=== PATIENT | male | born 1995 | race Caucasian/White ===

== ENCOUNTER 2018-07-29 18:41 | Emergency (ER) | payer SELFPAY ==
[~2018-07-29] VITALS: Ht 180.3 cm; Wt 65.8 kg
--- NOTE | 2018-07-29 19:04 | NUR ---
ED Nurse Note: Pt walked in to ED with crutches due to left foot injury on Wed night. per pt, fell from skateboard. Pain 6/10 aura. Swelling noted. Aox4, VSS. Will cont to monitor.
--- NOTE | 2018-07-29 19:08 | NUR ---
ED Nurse Note: Pt down to X-ray for imaging.
[2018-07-29] MEDS ORDERED: Norco 5mg/325mg tab ORAL ONE (19:15)
--- NOTE | 2018-07-29 19:42 | Emergency Room Report ---
History of Present Illness General Chief Complaint: Lower Extremity Injury Source: Medical Record Present Illness HPI 22-year-old male presents to the emergency department complaining of 4 out of 10 in severity localized pain, tenderness and swelling to the left ankle 4 days. Patient states that he rolled his ankle and heard a loud pop and has been icing and elevated ever since. Patient reports pain with bearing weight since he is using crutches that he had at home. Denies previous injury to the extremity.Denies numbness tingling or loss of sensation or gross motor movements of the extremities, incontinence of bowel or bladder. Denies CP, Palpitations, LOC, AMS, dizziness, Changes in Vision, weakness or a sudden severe headache. Allergies: Coded Allergies: No Known Allergies (Unverified , 07/29/18) Patient History Past Medical History: see triage record Past Surgical History: none Pertinent Family History: none Immunizations: UTD Reviewed Nursing Documentation: PMH: Agreed; PSxH: Agreed Nursing Documentation-PMH Past Medical History: No History, Except For Hx Asthma: Yes Review of Systems All Other Systems: negative except mentioned in HPI Physical Exam Vital Signs Date Time Temp Pulse Resp B/P (MAP) Pulse Ox O2 Delivery O2 Flow Rate FiO2 07/29/18 18:52 98.4 84 18 125/56 99 Room Air Sp02 EP Interpretation: reviewed, normal General Appearance: no apparent distress, alert, GCS 15, non-toxic Head: normocephalic, atraumatic Eyes: bilateral eye normal inspection, bilateral eye PERRL ENT: hearing grossly normal, normal voice Neck: full range of motion Respiratory: lungs clear, normal breath sounds, speaking full sentences Cardiovascular #1: regular rate, rhythm Musculoskeletal: back normal, normal range of motion, swelling - Lateral left ankle, tender - Lateral left ankle Neurologic: alert, oriented x3, responsive, motor strength/tone normal, sensory intact, speech normal, grossly normal Psychiatric: judgement/insight normal Skin: normal color, no rash, warm/dry, well hydrated Lymphatic: no adenopathy Medical Decision Making PA Attestation Dr. jarrett is my supervising Physician whom patient management has been discussed with. Diagnostic Impression: Primary Impression: Fibula fracture Qualified Codes: S82.822A - Torus fracture of lower end of left fibula, initial encounter for closed fracture ER Course 22-year-old male presents to the emergency department complaining of 4 out of 10 in severity localized pain, tenderness and swelling to the left ankle 4 days. Patient states that he rolled his ankle and heard a loud pop and has been icing and elevated ever since. Patient reports pain with bearing weight since he is using crutches that he had at home. Denies previous injury to the extremity.Denies numbness tingling or loss of sensation or gross motor movements of the extremities, incontinence of bowel or bladder. Denies CP, Palpitations, LOC, AMS, dizziness, Changes in Vision, weakness or a sudden severe headache. Ddx considered but are not limited to Fracture, dislocation, contusion, Sprain/ Strain/Spasm Vital signs: are WNL, pt. is afebrile H&PE are most consistent with musculoskeletal injury will perform imaging to r/ o fractures/dislocations. ORDERS: - X-ray Left ankle ED INTERVENTIONS: - Duncan PO - Left short leg posterior Splint applied by skin care technician. Pt. remains neurovascularly intact. Patient was not provided with crutches as he already had his own pair. DISCHARGE: At this time pt. is stable for d/c to home. Will provide printed patient care instructions, and any necessary prescriptions. Care plan and follow up instructions have been discussed with the patient prior to discharge. Other X-Ray Diagnostic Results Other X-Ray Diagnostic Results : X-Ray ordered: Left ankle # of Views/Limited Vs Complete: 3 View Indication: Pain EP Interpretation: Yes THAI Xray: Interpretation reviewed, by supervising MD, and agrees with findings. Interpretation: no dislocation, no soft tissue swelling, other - Torsional distal fibula fracture. Impression: Other - Abnormal Electronically Signed by: Haven Pineda PA-C Last Vital Signs Date Time Temp Pulse Resp B/P (MAP) Pulse Ox O2 Delivery O2 Flow Rate FiO2 07/29/18 18:52 98.4 84 18 125/56 99 Room Air Disposition: HOME, SELF-CARE Condition: Stable Scripts Ibuprofen* (MOTRIN*) 600 Mg Tablet 600 MG ORAL THREE TIMES A DAY, #30 TAB 0 Refills Prov: Haven Pineda 07/29/18 Hydrocodone Bit/Acetaminophen 5-325* (NORCO 5-325*) 1 Each Tablet 1 TAB ORAL Q6H PRN for For Pain, #12 TAB 0 Refills Prov: Haven Pineda 07/29/18 Patient Instructions: Undisplaced Fibular Ankle Fracture Treated With Immobilization, Adult Additional Instructions: Take medications as directed. Follow up with an SENIOR HR MANAGER in 3-5 days, even if your symptoms have resolved. --Please review list of primary care clinics, if you do not already have a primary care provider who can give you an Orthopedic Referral. Return sooner to ED if new symptoms occur, or current symptoms become worse. Do not drink alcohol, drive, or operate heavy machinery while taking Duncan as this may cause drowsiness. - Please note that this Emergency Department Report was dictated using [employer] shift manager technology software, occasionally this can lead to erroneous entry secondary to interpretation by the dictation equipment. Haven Pineda Jul 29, 2018 19:42
[2018-07-29] MEDS ORDERED: NORCO 5-325 TA1 EACH ORAL (19:43)
[2018-07-29] MEDS ORDERED: IBUPROFEN600 MG ORAL (19:43)
[2018-07-29 19:55] VITALS: BP 122/60
--- NOTE | 2018-07-29 19:55 | NUR ---
ED Nurse Note: Patient is being discharged from ED alert and oriented x4, ambulatory with a steady gait, VSS, Patient acknowledged the need to follow up with PMD within a week if symptoms dont improve, ID band removed
--- NOTE | 2018-07-29 20:12 | Diagnostic Imaging Report ---
EXAM: XR Left Ankle Complete, 3 or More Views CLINICAL HISTORY: PAIN TECHNIQUE: Frontal, lateral and oblique views of the left ankle. COMPARISON: No relevant prior studies available. FINDINGS: Bones/joints: Acute minimally displaced transverse fracture of the distal fibular metadiaphysis. Irregularity of the posterior malleolus. Soft tissues: Diffuse soft tissue edema. IMPRESSION: Acute distal fibular fracture. Irregularity of the posterior malleolus. A nondisplaced fracture is not excluded in setting of trauma.
== END 2018-07-29 19:50 | disposition home or self-care (01) ==
LOC: EMR 19:23
DX: S82.422A Displaced transverse fracture of shaft of left fibula, initial encounter for closed fracture (principal); X50.1XXA Overexertion from prolonged static or awkward postures, initial encounter; Y92.89 Other specified places as the place of occurrence of the external cause; J45.909 Unspecified asthma, uncomplicated
CPT/HCPCS: 29515; 99283